=== PATIENT | male | born 1960 | race Caucasian/White ===

== ENCOUNTER 2023-11-21 08:14 | Outpatient (RCR) | payer OTHER, SELFPAY | END 2023-11-21 23:59 | disposition home or self-care (01) | LOC: RPT 08:14 | PROVIDERS: ATTENDING PHYSICIAN Orthopaedic Surgery; FAMILY PHYSICIAN Physician Assistant Medical | DX: M54.12 Radiculopathy, cervical region (principal); Z73.6 Limitation of activities due to disability | CPT/HCPCS: 97110; 97140; 97162 ==

== ENCOUNTER 2023-12-10 15:11 | Outpatient (RCR) | payer OTHER, SELFPAY | END 2023-12-10 23:59 | disposition home or self-care (01) | LOC: RPT 15:11 | PROVIDERS: ATTENDING PHYSICIAN Orthopaedic Surgery; FAMILY PHYSICIAN Physician Assistant Medical | DX: M54.12 Radiculopathy, cervical region (principal); Z73.6 Limitation of activities due to disability; M25.512 Pain in left shoulder; M19.012 Primary osteoarthritis, left shoulder; M75.82 Other shoulder lesions, left shoulder | CPT/HCPCS: 97110; 97112 ==

== ENCOUNTER → 2024-02-26 13:04 | Outpatient (REF) | payer OTHER, SELFPAY ==
[2024-02-26 17:29] LABS: % Basophils 0.9 % (0-2); % Eosinophils 2.4 % (0-6); % Immature Granulocytes 0.2 % (0-0.5); % Lymphocytes 18.2 % (20.5-51.1); % Monocytes 13.5 % (1.7-9.3); % Neutrophils 64.8 % (42.2-75.2); Absolute Basophils 0.1 10^3/uL (0-0.2); Absolute Eosinophils 0.2 10^3/uL (0-0.7); Absolute Lymphocytes 1.5 10^3/uL (1.2-3.4); Absolute Monocytes 1.1 10^3/uL (0.1-0.6); Absolute Neutrophils 5.5 10^3/uL (1.4-6.5); Hematocrit 56.2 % (39.0-52.0); Hemoglobin 19.2 g/dL (13.0-18.0); Mean Corp Hgb Conc. 34.2 g/dL (33.0-37.0); Mean Corpuscular Hgb 30.6 pg (27.0-31.0); Mean Corpuscular Volume 89.5 fL (80.0-94.0); Nucleated Red Blood Cells % 0 % (-); Platelet Count 185 10^3/uL (130-400); Red Blood Cell Count 6.28 10^6/uL (4.70-6.10); Red Cell Dist. Width 12.9 % (11.5-14.5); White Blood Cell Count 8.4 10^3/uL (4.8-10.8)
[2024-02-26 17:31] LABS: Fibrinogen 233 MG/DL (199-459)
== END ==
LOC: REG 13:04
PROVIDERS: ATTENDING PHYSICIAN Nurse Practitioner Family
DX: T14.8XXA Other injury of unspecified body region, initial encounter (principal)
CPT/HCPCS: 36415; 85025; 85384

== ENCOUNTER → 2024-02-28 10:19 | Outpatient (REF) | payer OTHER, SELFPAY | LOC: RAD 10:19 | PROVIDERS: ATTENDING PHYSICIAN Nurse Practitioner Family; FAMILY PHYSICIAN Physician Assistant Medical | DX: T14.8XXA Other injury of unspecified body region, initial encounter (principal) | CPT/HCPCS: 93971 ==

== ENCOUNTER 2024-02-28 21:08 | Emergency (ER) | payer OTHER, SELFPAY ==
[2024-02-28 21:13] LABS: Glucose - Point of Care 117 mg/dl (70-99)
--- NOTE | 2024-02-28 22:22 | ED.GENMED ---
History of Present Illness
General
Chief Complaint: CODE
Source: ambulance crew and other (fiancee)
Exam Limitations: altered mental status
Time Seen by Provider: 02/28/24 21:29
Nursing documentation reviewed up to this point in time: agreed with
Travel History
Have you had any contact with someone who has COVID-19?: Unable to Answer
Do you have any symptoms of coronavirus? Fever > 100 degrees, chills, cough, shortness of breath, sore throat, loss of taste or smell, muscle aches, or headache?: Unable to Answer
History of Present Illness
History of Present Illness:
The patient is a 64-year-old man with a past medical history of hypertension who was found down, unresponsive by his fianc�e just prior to arrival. The patient's fianc� reports that he was seen 'completely fine' 15 minutes prior to her finding him
unresponsive on the front lawn. Right after discovering the patient, his fianc�e called 911. Patient was found with agonal respirations and pulseless by paramedics. Patient was intubated prior to arrival to the ED. According to paramedics,
patient remained pulseless in PEA arrest, despite CPR and 3 rounds of epinephrine. Paramedics report that CPR had been going on for at least 20 minutes prior to arrival to the ED. His fianc�e reports that he was previously well and had gone out to
dinner without any complaints of chest pain or shortness of breath. Patient just underwent an ultrasound of his left leg today for several weeks of bruising to his left thigh area. The ultrasound was read as a hematoma without DVT.
Past History
Past History
ED Past Medical History: HTN
ED Past Surgical History: Other
Social History
Tobacco: Other
Alcohol: Occasional
Drug: None
Personal: Other (Engaged)
Living: with family
Employment: Other
Family History
Family History: Unable to obtain
Review of Systems
Review of Systems
Allergies reviewed?: Yes
Other source history: family and ambulance crew
All Other Systems: Not applicable
Phy Exam
Physical Exam
Physical Exam:
Physical Exam
General: Patient cyanotic appearing. Unresponsive, pulseless, intubated
Neck: supple. ET tube
Heart: Pulseless, cyanotic
Lungs: Bilateral equal chest rise on ventilator
Abdomen: Soft, distended
Neuro: Unresponsive
Skin: no rash
Psychiatric: Unresponsive
Extremities: Cyanotic
Course
Orders/Labs/Results
Orders:
Orders
02/28/24 21:09
Calcium CHLORIDE [Calcium Chloride 10% Syringe] 1,000 mg .ROUTE .STK-MED ONE
EPINEPHrine [Adrenalin 1 mg/10 ml] 6 mg .ROUTE .STK-MED ONE
Sodium Bicarbonate 50 meq .ROUTE .STK-MED ONE
Abnormal Lab Results
02/28/24
21:12
POC Glucose 117 H mg/dl
(70-99)
MDM/Problems Addressed
Differential Diagnosis Includes:
Massive acute coronary syndrome, aortic dissection, cardiac rupture, intracranial hemorrhage, massvie PE
MDM/Problems Addressed:
Patient arrives unresponsive in PEA
Chronic conditions affecting care: HTN
*Pulse Oximetry
Patient hypoxic: yes
*EKG
Interpreted by ED Provider?: NA (Could not get EKG due to continuous CPR and pulselessness)
*Parole Or Probation Officer Interpretation
Rate: other (Occasional cardiac impulses on monitor)
*Critical Care Note
Total Time (30-74mins, 75-104mins- exclusive of procedures): Not Applicable
Data Reviewed
Review of Other/Old Records Reveals: Radiology Studies (Ultrasound of lower extremity reviewed by me. Read as no DVT)
Source: spouse and ambulance crew
Update Note
Update Note:
Patient arrives pulseless after being given 3 rounds epinephrine by paramedics. Patient remained pulseless in the emergency department. Patient was given 2 rounds epinephrine, calcium, as well as bicarb with no sign of circulation or pulse.
Bedside ultrasound performed by me which showed essentially little to no cardiac contractility. Patient declared at 21:21 by me. I completed certificate online.
ED Attending Note
-
Portions of this chart may have been created with voice recognition software.� Occasional wrong word or��sound alike� substitutions may have occurred due to the inherent limitations of voice recognition software.
Discharge Plan
Departure
Patient Disposition:
Date of Disposition: 02/28/24
Time of Disposition: 22:24
Patient with high blood pressure during this ER visit?: No
Condition: Critical
Covid-19: Not Applicable
Discharge Problem:
Cardiac arrest with pulseless electrical activity
Prescriptions:
No Action
lisinopril 20 mg tablet
20 mg PO DAILY
tamsulosin 0.4 mg capsule
0.4 mg PO DAILY
tadalafil 20 mg tablet
20 mg PO DAILY PRN (Reason: ED)
Referrals:
Fabio Rapp PA-C [Family Provider] -
Interventions
Interventions:
*Risk Screen - Suicide Last Done: 02/28/24 21:10
*General Assessment Last Done: 02/28/24 21:10
*Neglect/Abuse Screening Last Done: 02/28/24 21:10
*ED COVID-19 Vaccine History Last Done: 02/28/24 21:10
*Nursing Disposition Last Done: 02/29/24 03:15
Discharge Date and Time
Discharge Date/Time: 02/28/24 21:21
Print Language: CITIZ[place]
== END 2024-02-28 21:21 | disposition expired ==
LOC: EMR 21:08
PROVIDERS: EMERGENCY PHYSICIAN Emergency Medicine; FAMILY PHYSICIAN Physician Assistant Medical
DX: I46.9 Cardiac arrest, cause unspecified (principal); I10 Essential (primary) hypertension
CPT/HCPCS: 99282; 82962; 93971